=== PATIENT | female | born 1950 | race Caucasian/White ===

== ENCOUNTER → 2021-06-13 | Outpatient (CLI) | payer MEDICARE, BC, OTHER ==
--- NOTE | 2021-06-13 13:58 | RAD ---
Left foot 3 views. HISTORY: Left foot pain 3 views were taken of the left foot. There is either been resection of the distal aspect of the proxi mal phalanx of the fifth toe or an old ununited fracture. There is irregularity suggesting previous r esection of the distal end of the proximal phalanx of the second toe. Patient's had a first metatarsa l osteotomy which is well-healed. There is no acute fracture or bony destructive process. There are f lexion deformities of the third and fourth toes. IMPRESSION: 1. Changes from prior surgery left foot. 2. No acute fracture or bony destructive process. Electronically signed by: Jaxon Clemente MD (06/13/2021 1:55 PM) [facility]
== END ==
LOC: RAD 13:24
PROVIDERS: ATTEND Nurse Practitioner Family
DX: S99.922A Unspecified injury of left foot, initial encounter (principal); M20.5X2 Other deformities of toe(s) (acquired), left foot; X58.XXXA Exposure to other specified factors, initial encounter; Y93.89 Activity, other specified; Y92.89 Other specified places as the place of occurrence of the external cause; Y99.8 Other external cause status
CPT/HCPCS: 73630